=== PATIENT | female | born 1985 | race Caucasian/White ===

== ENCOUNTER 2017-07-28 15:56 | Emergency (ER) | payer BC ==
[2017-07-28 16:13] VITALS: BP 117/69
--- NOTE | 2017-07-28 17:06 | UC ---
Gurmeet Rogers Natalie, scribed for Pavan Leal MD on 07/28/17 at 1658 . Dizzy HPI HPI Summary: The pt is a 32 y/o F presenting to c/o dizziness for six days. The dizziness is described as head-spinning. Her vision gets blurry that she describes as fading in and out and getting dark. She also has a headache, rated 6/10. Her episodes of blurry vision last up for a few minutes. The symptoms are aggravated by eating and alleviated by lying down. Pt additionally c/o nausea and respiratory discomfort. Pt denies fever. She has had seven episodes since symptoms began. She has not had any falls or been in any MVAs recently. - History Of Current Complaint Chief Complaint: GI Stated Complaint: DIZZY, FEVER, HEADACHE Time Seen by Provider: 07/28/17 16:39 Hx Obtained From: Patient Hx Last Menstrual Period: Now Onset/Duration: Lasting Days - started six days ago, Still Present Timing: Frequency Of Episodes - seven episodes Pain Intensity: 6 Pain Scale Used: 0-10 Numeric Character: Head Spinning Aggravating Factor(s): Nothing Alleviating Factor(s): Lying Down Associated Signs And Symptoms: Positive: Visual Changes - blurred vision - Allergies/Home Medications Allergies/Adverse Reactions: Allergies Allergy/AdvReac Type Severity Reaction Status Date / Time No Known Allergies Allergy Verified 12/20/15 08:41 Home Medications: Home Medications NK [No Home Medications Reported] 07/28/17 [History Confirmed 07/28/17] PMH/Surg Hx/FS Hx/Imm Hx - Surgical History Surgical History: Yes Surgery Procedure, Year, and Place: lt ankle repair with plates and screws - Social History Alcohol Use: Rare Substance Use Type: None Smoking Status (MU): Never Smoked Tobacco Have You Smoked in the Last Year: No Review of Systems ENT: Sinus Congestion Gastrointestinal: Nausea Neurological: Headache All Other Systems Reviewed And Are Negative: Yes Physical Exam Triage Information Reviewed: Yes Appearance: Well-Appearing, No Pain Distress Vital Signs: Initial Vital Signs Temp 97.5 F 07/28/17 16:05 Pulse 65 07/28/17 16:05 Resp 18 07/28/17 16:05 BP 117/69 07/28/17 16:05 Pulse Ox 100 07/28/17 16:05 Eyes: Positive: Conjunctiva Clear ENT: Positive: Normal ENT inspection, Pharynx normal, TMs normal Neck: Positive: Supple, Nontender Respiratory: Positive: Chest non-tender, Lungs clear Cardiovascular: Positive: RRR, No Murmur Musculoskeletal: Positive: Strength Intact, ROM Intact Neurological: Positive: Alert, Muscle Tone Normal, Other: - cn 2-12 grossly intact, strength 5/5 , sensory grossly intact. Gait normal Psychological: Positive: Normal Response To Family Skin Exam: Normal Dizzy Course/Dx - Course Course Of Treatment: 32 yr old with vertigo, blur vision and headache signed out AMA with refusal of transfer to the ER for work up. Signed out AMA. - Differential Dx/Diagnosis Provider Diagnoses: vertigo. headache. blur vision Discharge - Discharge Plan Condition: Guarded Disposition: AGAINST MEDICAL ADVICE Referrals: No Primary Care Phys,NOPCP [Primary Care Provider] - The documentation as recorded by the Gurmeet broderick Natalie accurately reflects the service I personally performed and the decisions made by Elvis alexander Walter, MD.
== END 2017-07-28 17:00 | disposition left against medical advice (07) ==
LOC: UCEAST 15:56
DX: R42 Dizziness and giddiness (principal); R51 Headache; H53.8 Other visual disturbances
CPT/HCPCS: 87502; 87651; 99212; G0463

== ENCOUNTER 2017-09-05 09:30 | Emergency (ER) | payer BC ==
[2017-09-05 09:53] VITALS: BP 97/64
--- NOTE | 2017-09-05 10:23 | UC ---
FLU HPI - HPI Summary HPI Summary: 32 Y/O female with C/O nausea without vomiting, body aches, fever, chills, sore throat, and malaise. States symptoms began on 09/04/17. No significant medical history of cardiac or respiratory illness, Medical history and medications reviewed at this visit. - History of Current Complaint Chief Complaint: UCGeneralIllness Stated Complaint: FLU SYMPTOMS Time Seen by Provider: 09/05/17 09:52 Hx Obtained From: Patient Hx Last Menstrual Period: 08/21/17 ?: No Onset/Duration: Sudden Onset Severity Currently: Mild Severity Initially: Mild Pain Intensity: 2 Pain Scale Used: 0-10 Numeric Associated Signs & Symptoms: Positive: Fever, Cough, Sore Throat, Headache - Risk Factors Influenza Risk Factors: Negative - Allergy/Home Medications Allergies/Adverse Reactions: Allergies Allergy/AdvReac Type Severity Reaction Status Date / Time No Known Allergies Allergy Verified 09/05/17 09:46 PMH/Surg Hx/FS Hx/Imm Hx Previously Healthy: Yes - Surgical History Surgical History: Yes Surgery Procedure, Year, and Place: left ankle repair with plates and screws- 2009 - Social History Alcohol Use: Rare Substance Use Type: None Smoking Status (MU): Never Smoked Tobacco Have You Smoked in the Last Year: No Review of Systems Constitutional: Fever, Chills, Fatigue Skin: Negative Eyes: Negative ENT: Sore Throat, Sinus Congestion Respiratory: Cough Cardiovascular: Negative Genitourinary: Negative Motor: Negative Neurovascular: Negative Musculoskeletal: Negative Neurological: Negative Psychological: Negative Is Patient Immunocompromised?: No All Other Systems Reviewed And Are Negative: Yes Physical Exam Triage Information Reviewed: Yes Appearance: Well-Appearing Vital Signs: Initial Vital Signs Temp 97.8 F 09/05/17 09:47 Pulse 103 09/05/17 09:47 Resp 16 09/05/17 09:47 BP 97/64 09/05/17 09:47 Pulse Ox 95 09/05/17 09:47 Vital Signs Reviewed: Yes Eye Exam: Normal Eyes: Positive: Conjunctiva Clear ENT: Positive: Pharyngeal erythema, Tonsillar swelling Neck exam: Normal Neck: Positive: Supple, Nontender, No Lymphadenopathy Respiratory Exam: Normal Respiratory: Positive: Lungs clear, Normal breath sounds Cardiovascular Exam: Normal Cardiovascular: Positive: RRR Abdominal Exam: Normal Bowel Sounds: Positive: Present Musculoskeletal Exam: Normal Neurological Exam: Normal Psychological Exam: Normal Skin Exam: Normal Flu Course/Dx - Differential Dx/Diagnosis Differential Diagnosis/HQI/PQRI: Influenza, Upper Respiratory Infection, Other - Strep throat Provider Diagnoses: Strep throat Discharge - Discharge Plan Condition: Stable Disposition: HOME Patient Education Materials: Strep Throat (ED) Referrals: No Primary Care Phys,NOPCP [Primary Care Provider] - Additional Instructions: Your influenza screen was negative. Your strep screen was positive. Take antibiotics as directed. If symptoms do not improve in the next few days or if you have difficulty swallowing please return to urgent care or emergency department.
== END 2017-09-05 10:53 | disposition home or self-care (01) ==
LOC: UCEAST 09:30
DX: J02.0 Streptococcal pharyngitis (principal)
CPT/HCPCS: 87502; 87651; 99212; G0463